=== PATIENT | female | born 1970 | race Caucasian/White ===

== ENCOUNTER 2019-05-25 10:47 | Outpatient (REF) | payer BC, SELFPAY ==
[2019-05-25 20:51] LABS: HCT 44.6 % (36.0-46.0); HGB 14.5 g/dL (12.0-15.5); Mean Corp. HGB Concentration 32.5 g/dL (32.0-36.0); Mean Corpuscular Hemoglobin 29.4 pg (27.0-33.0); Mean Corpuscular Volume 90.5 fL (80-95); Mean Platelet Volume 10.8 fL (8.0-11.0); Platelet Count 203 x1000/uL (130-400); RBC 4.93 m/cumm (4.00-5.20); RBC Distribution Width 12.7 % (11.7-14.6); White Blood Cell Count 4.26 k/cumm (4.4-10.8)
[2019-05-25 21:02] LABS: Anion Gap 6.8 mmol/L (3-11); BUN 17 mg/dL (7-18); CO2 29.2 mmol/L (21.0-32.0); CREATININE 0.82 mg/dL (0.55-1.02); Calcium 9.1 mg/dL (8.5-10.1); Chloride 106 mmol/L (98-107); Glucose 92 mg/dL (70-100); Potassium 4.6 mmol/L (3.5-5.1); Sodium 142 mmol/L (136-145); TSH (W/Ref FT4) 1.95 uIU/mL (0.36-3.74)
== END 2019-05-25 11:07 ==
LOC: NCHCN 10:47
PROVIDERS: PCP Nurse Practitioner Family; Visit Provider Family Medicine
DX: N92.4 Excessive bleeding in the premenopausal period (principal); Z00.00 Encounter for general adult medical examination without abnormal findings; R42 Dizziness and giddiness
CPT/HCPCS: 80048; 85027; 84443

== ENCOUNTER 2021-10-09 11:48 | Outpatient (REF) | payer BC, SELFPAY ==
--- NOTE | 2021-10-09 09:45 | PAPFT_PTH ---
PATIENT: Margaret Campos LOC: [facility]#:[id number] AGE/SX: 51/F ROOM: RE10/09/[address]: Ethan Rowland : 1970 BED: DIS: 10/09/2021 SPEC #: FC: RECD: 10/10/21 13:03 STATUS: SELENA REMar #: [id number] DENAE: 10/09/21 09:[address]: Ethan Rowland DEPT: [facility] Cytology RECD BY: Haritha Cardozo ENTERED: 10/10/21 13:03 SP TYPE: PAPFT OTHR DR: Shoshana Donis Tissues: 1 - CX/ENDOCX FOR PAP SMEARS Procedures: PAP THIN PREP/[facility] Screening HPV DNA PROBE Comments: [id number]
== END 2021-10-09 11:49 | disposition home or self-care (01) ==
LOC: NCHCN 11:48
PROVIDERS: PCP Nurse Practitioner Family; Visit Provider Family Medicine
DX: Z11.4 Encounter for screening for human immunodeficiency virus [HIV] (principal); Z11.51 Encounter for screening for human papillomavirus (HPV)
CPT/HCPCS: 88142; 87624

== ENCOUNTER 2021-10-30 14:47 | Outpatient (REF) | payer BC, SELFPAY ==
[2021-10-30 16:58] LABS: ALT 26 U/L (14-59); AST 19 U/L (15-37); Albumin 3.7 g/dL (3.4-5.0); Alkaline Phosphatase 51 U/L (46-116); Anion Gap 9.5 mmol/L (3-11); BUN 15 mg/dL (7-18); Bilirubin, Total 0.5 mg/dL (0.2-1.0); CO2 26.5 mmol/L (21.0-32.0); CREATININE 0.9 mg/dL (0.55-1.02); Calcium 9.1 mg/dL (8.5-10.1); Calculated LDL 183 mg/dL (<100); Chloride 104 mmol/L (98-107); Cholesterol 271 mg/dL (<200); Glucose 92 mg/dL (74-106); HDL Cholesterol 63 mg/dL (40-60); Potassium 4.4 mmol/L (3.5-5.1); Sodium 140 mmol/L (136-145); Total Protein 6.8 g/dL (6.4-8.2); Triglyceride 128 mg/dL (<150)
== END 2021-10-30 14:48 | disposition home or self-care (01) ==
LOC: NCHCN 14:47
PROVIDERS: PCP Nurse Practitioner Family; Visit Provider Family Medicine
DX: E78.5 Hyperlipidemia, unspecified (principal); E66.9 Obesity, unspecified
CPT/HCPCS: 80053; 80061

== ENCOUNTER 2022-01-29 16:32 | Outpatient (REF) | payer BC, SELFPAY ==
[2022-01-31 12:33] LABS: COVID-19 RT-PCR UVMMC Result Negative (Negative)
== END 2022-01-29 16:33 | disposition home or self-care (01) ==
LOC: NCHCN 16:32
PROVIDERS: PCP Nurse Practitioner Family; Visit Provider Registered Nurse
DX: J32.9 Chronic sinusitis, unspecified (principal); Z20.822 Contact with and (suspected) exposure to COVID-19
CPT/HCPCS: U0003

== ENCOUNTER 2022-10-10 10:02 | Outpatient (REF) | payer BC, SELFPAY ==
[2022-10-10 14:46] LABS: Calculated LDL 177 mg/dL (<100); Cholesterol 265 mg/dL (<200); Glucose 92 mg/dL (74-106); HDL Cholesterol 70 mg/dL (40-60); Triglyceride 91 mg/dL (<150)
== END 2022-10-10 10:03 | disposition home or self-care (01) ==
LOC: NCHCN 10:02
PROVIDERS: PCP Nurse Practitioner Family; Visit Provider Family Medicine
DX: E66.9 Obesity, unspecified (principal); Z00.00 Encounter for general adult medical examination without abnormal findings
CPT/HCPCS: 80061; 82947

== ENCOUNTER 2023-11-21 13:35 | Outpatient (REF) | payer BC, SELFPAY ==
[2023-11-21 14:32] LABS: ALT 28 U/L (14-59); AST 19 U/L (15-37); Albumin 3.8 g/dL (3.4-5.0); Alkaline Phosphatase 45 U/L (46-116); Anion Gap 8.1 mmol/L (3-11); BUN 18 mg/dL (7-18); Bilirubin, Total 0.6 mg/dL (0.2-1.0); CO2 27.9 mmol/L (21.0-32.0); CREATININE 0.9 mg/dL (0.55-1.02); Calcium 9.4 mg/dL (8.5-10.1); Calculated LDL 188 mg/dL (<100); Chloride 104 mmol/L (98-107); Cholesterol 295 mg/dL (<200); Glucose 97 mg/dL (74-106); HDL Cholesterol 80 mg/dL (40-60); Potassium 4.2 mmol/L (3.5-5.1); Sodium 140 mmol/L (136-145); Total Protein 7.5 g/dL (6.4-8.2); Triglyceride 139 mg/dL (<150)
== END 2023-11-21 13:36 | disposition home or self-care (01) ==
LOC: NCHCN 13:35
PROVIDERS: PCP Nurse Practitioner Family; Visit Provider Family Medicine
DX: E78.5 Hyperlipidemia, unspecified (principal)
CPT/HCPCS: 80053; 80061

== ENCOUNTER 2024-11-23 18:07 | Outpatient (REF) | payer BC, SELFPAY ==
[2024-11-23 21:57] LABS: ALT 19 U/L (14-59); AST 17 U/L (15-37); Albumin 3.5 g/dL (3.4-5.0); Alkaline Phosphatase 61 U/L (46-116); Anion Gap 7.1 mmol/L (3-11); BUN 17 mg/dL (7-18); Bilirubin, Total 0.27 mg/dL (0.2-1.0); CO2 27.9 mmol/L (21.0-32.0); CREATININE 1.1 mg/dL (0.55-1.02); Calcium 9.3 mg/dL (8.5-10.1); Calculated LDL 136 mg/dL (<100); Chloride 108 mmol/L (98-107); Cholesterol 240 mg/dL (<200); Estimated GFR 60.46 (mL/min/1.73m2); Glucose 92 mg/dL (74-106); HDL Cholesterol 69 mg/dL (40-60); Potassium 4.1 mmol/L (3.5-5.1); Sodium 143 mmol/L (136-145); Total Protein 6.9 g/dL (6.4-8.2); Triglyceride 179 mg/dL (<150)
[2024-11-23 22:20] LABS: Hemoglobin A1C 5.5 % (<5.7)
== END 2024-11-23 18:08 | disposition home or self-care (01) ==
LOC: NCHCN 18:07
PROVIDERS: PCP Nurse Practitioner Family; Visit Provider Family Medicine
DX: Z00.00 Encounter for general adult medical examination without abnormal findings (principal)
CPT/HCPCS: 80053; 80061; 83036

== ENCOUNTER 2025-06-02 13:34 | Outpatient (REF) | payer BC, SELFPAY | END 2025-06-02 13:35 | disposition home or self-care (01) | LOC: NCHCN 13:34 | PROVIDERS: PCP Nurse Practitioner Family; Visit Provider Family Medicine | DX: R30.0 Dysuria (principal) | CPT/HCPCS: 87077; 87086; 87186 ==